=== PATIENT | female | born 1980 | race Two or more races ===

== ENCOUNTER 2024-03-21 19:53 | Emergency (ER) | payer BC, SELFPAY ==
[2024-03-21 19:54] VITALS: BMI 34.9
[2024-03-21 20:28] VITALS: BP 168/111; PULSE 74; RESP 16; TEMP 36.7; O2SAT 99
--- NOTE | 2024-03-21 20:50 | EDNOTE_ITS ---
ED Headache RME/HPI General Chief Complaint: Headache Stated Complaint: HIGH BLOOD PRESSURE Time Seen by Provider: 03/21/24 20:44 Arrival date/time: 03/21/24 19:53 44F with history of stage 4 cervical cancer on chemo presents to ED with elevated BP readings and slight IGLESIAS. Patient does not want any diagnostics in cluding CT and lab work and just wants meds to lower BP. Limitations: no limitations Related Data Previous Rx's ?Medication ?Instructions ?Recorded tranexamic acid 650 mg tablet 650 mg PO BID #10 tabs 05/28/22 hydralazine 25 mg tablet 25 mg PO BID PRN hypertension #20 03/22/24 tabs Allergies Allergy/AdvReac Type Severity Reaction Status Date / Time No Known Allergies Allergy Verified 03/21/24 19:57 Past Medical History Past Medical History NEUROLOGIC: Negative Seizures CARDIAC: Negative Congestive Heart Failure RESPIRATORY: Negative Chronic Obstructive Pulmonary Disease (COPD) GENITOURINARY: Negative Renal Disease ENDOCRINE: Negative Diabetes Mellitus Type 1 or Diabetes Mellitus Type 2 HEMATOLOGIC: Positive Anemia OTHER HISTORY: Positive Blood Transfusions and Cervical Cancer; Negative Blood Transfusion Reaction or Anesthesia Reactions Surgical History SURGICAL: Positive Ear Surgery Social History SMOKING STATUS: Never smoker ED Exam General Limitations: Present no limitations General appearance: Present alert and in no apparent distress Head Head exam: Present atraumatic Eye Eye exam: Present normal appearance, PERRL and EOMI ENT ENT exam: Present normal exam, normal oropharynx and mucous membranes moist Neck Neck exam: Present normal inspection, full ROM and trachea midline Chest Chest inspection: Present normal inspection and symmetric chest wall rise Respiratory Respiratory exam: Present normal lung sounds bilaterally Cardiovascular Cardiovascular exam: Present regular rate, normal rhythm and normal heart sounds Abdominal Exam Abdominal exam: Present soft and normal bowel sounds Extremities Exam Extremities exam: Present normal inspection and full ROM Back Exam Back exam: Present normal inspection and full ROM Neurological Exam Neurological exam: Present alert, oriented X3 and CN II-XII intact Psychiatric Psychiatric exam: Present normal affect and normal mood Skin Skin exam: Present warm, dry, intact and normal color Course Quality Measures none Orders Category Date Time Status EKG (ED ONLY) *Do not use* NOW Care 03/21/24 20:00 Completed EKG (ED Only) Stat Exams 03/21/24 20:00 Ordered cloNIDine HCL [Catapres] Med 03/21/24 20:44 Discontinued 0.1 mg PO X1 ONE hydrALAZINE HCL [Apresoline] Med 03/21/24 22:22 Discontinued 25 mg PO X1 ONE Vital Signs Vital signs: Vital Signs Temperature 98.1 F 03/21/24 20:28 Pulse Rate 74 03/21/24 20:28 Respiratory Rate 16 03/21/24 20:28 Blood Pressure 168/111 H 03/21/24 20:28 Pulse Oximetry (%) 99 03/21/24 20:28 Oxygen Delivery Method Room Air 03/21/24 20:28 O2 at 99% on RA and WNLs Headache MDM Narrative MDM Narrative:: 44F with history of HTN and stage 4 cervical cancer on chemo presents to ED with elevated BP readings and slight IGLESIAS. Patient does not want any diagnostics including CT and lab work and just wants meds to lower BP. Physical exam reveals clear ENT and lungs. Normal pupil response and EOM. Patient is afebrile, calm, and alert. EKG is NSR. Meds lowered BP. Patient data External records reviewed:: [facility] previous records Clinical information provided by:: patient Social determinants that could affect healthcare access:: none Patient has the following chronic illnesses:: cancer and HTN How is presenting disease/condition affected by chronic disease/condition?: exacerbated by Evaluation data The following diagnostics were reviewed and interpreted by me:: EKG tracing(s) Lab and/or radiology exams considered but not ordered:: ordered Interpretation Summary: above Medications / Prescriptions Medications or Prescriptions considered but not ordered:: ordered Medication administrations:: Medication Administration History Discontinued Medications Clonidine (Clonidine Hcl 0.1 Mg Tablet) 0.1 mg PO X1 ONE Stop: 03/21/24 20:45 Last Admin: 03/21/24 20:54 Dose: 0.1 mg Documented By: FIONA Hydralazine HCl (Hydralazine Hcl 25 Mg Tablet) 25 mg PO X1 ONE Stop: 03/21/24 22:23 Last Admin: 03/21/24 22:42 Dose: 25 mg Documented By: SF above Consultations Consultation(s) initiated? (list below): No Diagnosis Differential diagnosis headache: migraine, tension headache, subarachnoid hemorrhage, headache, meningitis, sinusitis, postconcussion syndrome and other (HTN) Most likely diagnosis given after review of the tests above:: HTN Admission Indicated Admission indicated?: not indicated Admission Request Was there a request for admission?: No Disposition Plan Disposition Plan: Discharge Discharge Attestation Discharge Attestation: The patient and all family members were given an opportunity to ask questions and understood the discharge instructions. Discharge instructions specifically effects, indications for sooner follow up or return to the emergency department, and the expected course of current diagnosis. Patient condition: Stable Discharge Plan Plan Patient Disposition: HOME (Self Care) Disposition Comment: Stable Prescriptions/Referrals Prescriptions/Med Rec: New hydralazine 25 mg tablet 25 mg PO BID PRN (Reason: hypertension) Qty: 20 0RF Rx Instructions: Used as PRN after regular BP meds. No Action tranexamic acid 650 mg tablet 650 mg PO BID Qty: 10 0RF [facility]: [facility]MD [Primary Care Provider] - In 1 week Problem List Clinical Impression: Hypertension Patient/Caregiver Discharge Instructions Additional Instructions: Please follow-up with PCP within 24-48 hours and return immediately if symptoms worsen. Print Language: Yoruba Stand Alone Forms: Patient Portal Info Letter DEBBI/MARCUS Supervising Physician OSIRIS Supervising Physician: Dr. Mijares
[2024-03-21 20:54] VITALS: BP 168/111; PULSE 74
[2024-03-21] MEDS: cloNIDine HCL 0.1 MG TABLET PO (20:54)
[2024-03-21 22:23] VITALS: BP 169/106
[2024-03-21 22:42] VITALS: BP 169/106; PULSE 80
[2024-03-21] MEDS: hydrALAZINE HCL 25 MG TABLET PO (22:42)
[2024-03-21 23:12] VITALS: BP 167/115; PULSE 67; RESP 16; TEMP 37.6; O2SAT 99
[2024-03-22 00:03] VITALS: BP 143/93; PULSE 64; RESP 17; TEMP 37.1; O2SAT 97
== END 2024-03-22 00:16 | disposition home or self-care (01) ==
PROVIDERS: Emergency Provider Emergency Medicine; PCP Family Medicine
DX: I10 Essential (primary) hypertension (principal); C53.9 Malignant neoplasm of cervix uteri, unspecified
CPT/HCPCS: 93005; 99283; A9270

== ENCOUNTER 2025-04-08 07:54 | Emergency (ER) | payer BC, SELFPAY ==
[2025-04-08 08:08] VITALS: BP 127/97
[2025-04-08 08:09] VITALS: PULSE 88; O2SAT 98; BMI 26.4
--- NOTE | 2025-04-08 08:09 | EDNOTE_ITS ---
ED Fall Injury RME/HPI General Chief Complaint: Fall Stated Complaint: FALL Time Seen by Provider: 04/08/25 08:14 Arrival date/time: 04/08/25 07:54 RME / HPI RME / HPI Narrative: 45 year old female with history of cervical cancer undergoing chemotherapy treatments presents to the ED BIBA from home for evaluation of lower back pain s/p ground level mechanical fall occurring this morning. Patient states she was using her foot with napkins to clean her dogs urine off the floor and in doing so, lost balance and fell. States she fell landing on her left side and was unable to stand due to pain in her lower back. Pain in lower back is described as aching in sensation that is aggravated with movements. Initially rated 8/10 in severity. Per medics, patient was given 1 gram of IV Tylenol and on arrival to ED, rates her pain 4/10 in severity. No other injuries reported. Denies head injury or LOC. Denies any loss of sensation or movement of her lower extremities. Patient reports history of balance issues.. Related Data Previous Rx's ?Medication ?Instructions ?Recorded tranexamic acid 650 mg tablet 650 mg PO BID #10 tabs 0 05/28/22 hydralazine 25 mg tablet 25 mg PO BID PRN hypertensio n #20 03/22/24 tabs Allergies Allergy/AdvReac Type Severity Reaction Status Date / Time No Known Allergies Allergy Verified 03/21/24 19:57 Review of Systems Review of Systems Systems Reviewed: All systems reviewed, normal except as documented Past Medical History Past Medical History HEMATOLOGIC: Positive Anemia OTHER HISTORY: Positive Blood Transfusions and Cervical Cancer Surgical History SURGICAL: Positive Ear Surgery Social History SMOKING STATUS: Never smoker ED Exam Narrative Physical exam: GENERAL APPEARANCE: alert and oriented x 4, well-developed, well-nourished, no acute distress HEENT: Normocephalic, atraumatic; pupils equal, round, reactive to light; EOMI; mucous membranes pink, moist; oropharynx clear NECK: Supple LUNGS: CTABL; no wheezes, no rales, no rhonchi HEART: Regular rate, regular rhythm; normal S1, S2; no murmurs ABDOMEN: non distended; normal BS; soft, no tenderness, no guarding, no rebound; no masses, no organomegaly, no hernia BACK: Right SI joint tenderness EXTREMITIES: atraumatic; no edema NEUROLOGIC: awake; alert and oriented x4; cranial nerves II-XII grossly intact; no focal sensory or motor deficits PSYCHIATRIC: appropriate mood and affect SKIN: warm, dry, normal color; no rashes Course Quality Measures none Orders Category Date Time Status CT lumbar spine wo con Stat Exams 04/08/25 10:14 Completed XR lumbar spine 2-3V Stat Exams 04/08/25 08:16 Completed XR pelvis 1-2V Stat Exams 04/08/25 08:16 Completed Morphine* Inj Med 04/08/25 08:16 Discontinued 4 mg IVP X1 ONE Morphine* Inj Med 04/08/25 11:15 Discontinued 4 mg IVP X1 ONE Ondansetron Inj [Zofran Inj] Med 04/08/25 08:16 Discontinued 4 mg IVP X1 ONE Vital Signs Vital signs: Vital Signs Temperature 98.8 F 04/08/25 08:18 Pulse Rate 81 04/08/25 08:18 Respiratory Rate 20 04/08/25 08:18 Blood Pressure 127/97 H 04/08/25 08:18 Pulse Oximetry (%) 99 04/08/25 08:18 Oxygen Delivery Method Room Air 04/08/25 08:18 Fall MDM Narrative MDM Narrative:: Diane Roldan am scribing for and in the presence of Dr. Mcintyre. Patient remains clinically stable throughout the emergency department visit. We reviewed all the results, analysis, and treatment plans. Patient is amenable to discharge. Strict return precautions were outlined. Patient data External records reviewed:: [facility] previous records and EMS form Clinical information provided by:: patient and EMS Social determinants that could affect healthcare access:: none Patient has the following chronic illnesses:: Cervical cancer undergoing chemotherapy How is presenting disease/condition affected by chronic disease/condition?: uneffected by Evaluation data The following diagnostics were reviewed and interpreted by me:: radiology exam(s) Lab and/or radiology exams considered but not ordered:: None Interpretation Summary: Ordering Physician: hRea Mcintyre MD Date of Service: 04/08/25 Procedure(s): XR lumbar spine 2-3V Accession Number(s): [id number] cc: Alexys An MD; Rhea Mcintyre MD~ EXAMINATION: Lumbar spine 3 views TECHNIQUE: AP lateral coned lateral lower lumbar spine 3 views Date and time: April 08, 2025, 0840 hours INDICATIONS: Ground-level fall this morning with injury to the lower back, lower back pain. FINDINGS: Moderate osteopenia. Depression superior endplate L1 which may be acute Adequate alignment lumbar vertebral bodies IMPRESSION: Recommend CT scan lumbar spine without contrast follow-up to exclude acute compression fracture L1 vertebral body Dictated By: Alexys An MD Signed By: <Electronically signed by Alxeys An MD in OV> 04/08/25 0954 Ordering Physician: Rhea Mcintyre MD Date of Service: 04/08/25 Procedure(s): XR pelvis 1-2V Accession Number(s): [id number] cc: Alexys An MD; Rhea Mcintyre MD~ EXAMINATION: AP pelvis single view TECHNIQUE: AP supine portable pelvis single view Date and time: April 08, 2025, 0842 hours INDICATIONS: Patient fell this morning with injury to the pelvis, pelvic pain. FINDINGS: No acute hip or pelvic fracture. No hip dislocation IMPRESSION: No acute fracture Dictated By: Alexys An MD Signed By: <Electronically signed by Alexys An MD in OV> 04/08/25 0955 Ordering Physician: Rhea Mcintyre MD Date of Service: 04/08/25 Procedure(s): CT lumbar spine wo con Accession Number(s): [id number] cc: Alexys An MD; Mauro Bello MD; Rhea Mcintyre MD~ Examination: CT lumbar spine, without contrast. 2-D sagittal reconstructions. 2-D coronal reconstructions. 3-D reconstructions. Date and time of exam: April 08, 2025, 1128 hours INDICATIONS: Patient fell today with lower back pain, patient is a cancer patient undergoing chemotherapy CTDI: vol (mGy): 21.8 DLP: (mGycm): 653 Technique: Multiple 1.25 mm axial sections of the lumbar spine without intravenous contrast have been obtained. 2-D sagittal and coronal reconstructions have been obtained. 3-D reconstructions have been obtained. Low dose protocols were performed. One or more of the following dose reduction techniques were used; automated exposure control, adjustment of the mA and/or KV according to patient size, use of iterative reconstruction technique. Findings: Severe osteopenia Acute fracture L1 vertebral body, depression superior endplate, reduction in height 20% 2 mm retropulsion posterior superior margin of this vertebral body Pedicles laminae and transverse processes intact at this site as well as the remaining lumbar vertebral bodies No focal lumbar disc protrusion IMPRESSION: Acute fracture L1 vertebral body as above Dictated By: Alexys An MD Signed By: <Electronically signed by Alexys An MD in OV> 04/08/25 1151 Medications / Prescriptions Medications or Prescriptions considered but not ordered:: None Medication administrations:: Medication Administration History Discontinued Medications Morphine Sulfate (Morphine Sulf Inj 4 Mg/Ml Vial) 4 mg IVP X1 ONE Stop: 04/08/25 08:17 Last Admin: 04/08/25 08:32 Dose: 4 mg Documented By: JESUS Morphine Sulfate (Morphine Sulf Inj 4 Mg/Ml Vial) 4 mg IVP X1 ONE Stop: 04/08/25 11:16 Last Admin: 04/08/25 11:50 Dose: 4 mg Documented By: JESUS Ondansetron HCl (Ondansetron Inj 2 Mg/Ml Inj 2 Ml) 4 mg IVP X1 ONE Stop: 04/08/25 08:17 Last Admin: 04/08/25 08:32 Dose: 4 mg Documented By: JESUS See above Consultations Consultation(s) initiated? (list below): No Diagnosis Fall Differential Diagnosis: syncope and compression fracture Most likely diagnosis given after review of the tests above:: Closed compression fracture of L1 vertebra Admission Indicated Admission indicated?: not indicated Admission Request Was there a request for admission?: No Disposition Plan Disposition Plan: Discharge Discharge Attestation Discharge Attestation: The patient and all family members were given an opportunity to ask questions and understood the discharge instructions. Discharge instructions specifically effects, indications for sooner follow up or return to the emergency department, and the expected course of current diagnosis. Patient condition: Stable Discharge Plan Plan Patient Disposition: HOME (Self Care) Prescriptions/Referrals Prescriptions/Med Rec: No Action hydralazine 25 mg tablet 25 mg PO BID PRN (Reason: hypertension) Qty: 20 0RF Rx Instructions: Used as PRN after regular BP meds. tranexamic acid 650 mg tablet 650 mg PO BID Qty: 10 0RF Referrals: [facility]uro Bello[facility] [Primary Care Provider, Family Practice] - In 1 week Problem List Clinical Impression: Closed compression fracture of L1 vertebra Patient/Caregiver Discharge Instructions Education Materials: Back Fracture (Compression Fracture) Print Language: Swiss Stand Alone Forms: Rhianna Award Info., Patient Portal Info Letter
--- NOTE | 2025-04-08 08:16 | XR_ITS ---
EXAMINATION: Lumbar spine 3 views TECHNIQUE: AP lateral coned lateral lower lumbar spine 3 views Date and time: April 08, 2025, 0840 hours INDICATIONS: Ground-level fall this morning with injury to the lower back, lower back pain. FINDINGS: Moderate osteopenia. Depression superior endplate L1 which may be acute Adequate alignment lumbar vertebral bodies IMPRESSION: Recommend CT scan lumbar spine without contrast follow-up to exclude acute compression fracture L1 vertebral body
--- NOTE | 2025-04-08 08:16 | XR_ITS ---
EXAMINATION: AP pelvis single view TECHNIQUE: AP supine portable pelvis single view Date and time: April 08, 2025, 0842 hours INDICATIONS: Patient fell this morning with injury to the pelvis, pelvic pain. FINDINGS: No acute hip or pelvic fracture. No hip dislocation IMPRESSION: No acute fracture
[2025-04-08 08:18] VITALS: BP 127/97; PULSE 81; RESP 20; TEMP 37.1; O2SAT 99
[2025-04-08] MEDS: MORPHINE SULF INJ 4 MG/ML VIAL IVP ×2 (08:32→11:50)
[2025-04-08] MEDS: ONDANSETRON INJ 2 MG/ML INJ 2 ML 4 MG IVP (08:32)
--- NOTE | 2025-04-08 10:14 | XR_ITS ---
Examination: CT lumbar spine, without contrast. 2-D sagittal reconstructions. 2-D coronal reconstructions. 3-D reconstructions. Date and time of exam: April 08, 2025, 1128 hours INDICATIONS: Patient fell today with lower back pain, patient is a cancer patient undergoing chemotherapy CTDI: vol (mGy): 21.8 DLP: (mGycm): 653 Technique: Multiple 1.25 mm axial sections of the lumbar spine without intravenous contrast have been obtained. 2-D sagittal and coronal reconstructions have been obtained. 3-D reconstructions have been obtained. Low dose protocols were performed. One or more of the following dose reduction techniques were used; automated exposure control, adjustment of the mA and/or KV according to patient size, use of iterative reconstruction technique. Findings: Severe osteopenia Acute fracture L1 vertebral body, depression superior endplate, reduction in height 20% 2 mm retropulsion posterior superior margin of this vertebral body Pedicles laminae and transverse processes intact at this site as well as the remaining lumbar vertebral bodies No focal lumbar disc protrusion IMPRESSION: Acute fracture L1 vertebral body as above
[2025-04-08 11:51] VITALS: BP 139/92; O2SAT 99
[2025-04-08 14:23] VITALS: BP 144/92; PULSE 73; RESP 19; TEMP 36.6; O2SAT 96; O2SAT 98
[2025-04-08 15:00] VITALS: BP 139/98; O2SAT 98
== END 2025-04-08 15:48 | disposition home or self-care (01) ==
PROVIDERS: Emergency Provider Emergency Medicine; PCP Family Medicine
DX: S32.019A Unspecified fracture of first lumbar vertebra, initial encounter for closed fracture (principal); S39.93XA Unspecified injury of pelvis, initial encounter; W01.0XXA Fall on same level from slipping, tripping and stumbling without subsequent striking against object, initial encounter; Y93.K9 Activity, other involving animal care
CPT/HCPCS: 72100; 72131; 72170; 81025; 96374; 96375; 96376; 99283; J2270; J2405